=== PATIENT | male | born 1955 | race Caucasian/White ===

== ENCOUNTER → 2017-07-24 | Outpatient (CLI) | payer MEDICARE ==
[2017-07-24 11:40] LABS: ALBUMIN 4.6 g/dL (3.5-5.0); BUN/CREATININE RATIO 14.7 (6.0-26.0); CALCIUM 8.4 mg/dL (8.4-10.2); POTASSIUM 4.2 mmol/L (3.6-5.0); TOTAL BILIRUBIN 0.7 mg/dL (0.2-1.3); TOTAL PROTEIN 8.2 g/dL (6.3-8.2)
[2017-07-24 11:41] LABS: EOS # 0.1 (0.04-0.40); EOS % 1.5 % (0.0-4.0); HEMATOCRIT 49.5 % (42.0-52.0); HEMOGLOBIN 16.4 g/dL (13.5-18.0); LYMPH# 1.7 (1.50-4.00); MEAN CELL VOLUME 89 fl (78-100); MEAN CORPUSCULAR HEMOGLOBIN 29 pg (27-31); MEAN CORPUSCULAR HGB CONC 33 g/dL (33-37); MEAN PLATELET VOLUME 11.6 fl (7.4-10.4); MONO # 0.7 (0.20-0.80); NEU # 4.9 (1.40-6.50); PLATELET COUNT 245 K/mm3 (130-400); RED BLOOD COUNT 5.58 M/mm3 (4.20-5.60); RED CELL DISTRIBUTION WIDTH 13.5 % (11.5-14.5); WHITE BLOOD COUNT 7.5 K/mm3 (4.8-10.8)
== END ==
LOC: LAB 11:08
PROVIDERS: Family Medicine
DX: Z00.00 Encounter for general adult medical examination without abnormal findings (principal); R53.83 Other fatigue

== ENCOUNTER → 2017-08-03 | Outpatient (CLI) | payer MEDICARE | LOC: RAD 10:22 | DX: M54.9 Dorsalgia, unspecified (principal); Z53.8 Procedure and treatment not carried out for other reasons ==

== ENCOUNTER → 2019-10-13 | Outpatient (CLI) | payer MEDICARE ==
[2019-10-13 12:20] LABS: POTASSIUM 3.3 mmol/L (3.5-5.1)
[2019-10-13 12:22] LABS: CALCIUM 9.2 mg/dL (8.3-10.5)
== END ==
LOC: LAB 11:55
PROVIDERS: Family Medicine
DX: M54.9 Dorsalgia, unspecified (principal); Z98.890 Other specified postprocedural states

== ENCOUNTER → 2019-10-19 | Outpatient (CLI) | payer MEDICARE | LOC: AMSURD 15:41 | DX: I45.10 Unspecified right bundle-branch block (principal) ==

== ENCOUNTER → 2019-11-24 | Outpatient (CLI) | payer MEDICARE ==
[2019-11-24 11:35] LABS: POTASSIUM 3.9 mmol/L (3.5-5.1)
[2019-11-24 11:36] LABS: CALCIUM 8.9 mg/dL (8.3-10.5)
== END ==
LOC: LAB 10:48
PROVIDERS: Family Medicine
DX: M54.2 Cervicalgia (principal); Z98.890 Other specified postprocedural states

== ENCOUNTER 2020-01-22 23:30 | Emergency (ER) | payer MEDICARE ==
[~2020-01-22] VITALS: Ht 182.9 cm; Wt 96.8 kg
[2020-01-22] MEDS ORDERED: NORCO 325 MG-7.1 TA1 PO (23:45)
[2020-01-22] MEDS ORDERED: LISINOPRIL AND1 TA1 PO (23:45)
[2020-01-23 00:53] LABS: EOS # 0.2 (0.04-0.40); EOS % 1.6 % (0.0-4.0); HEMATOCRIT 46.2 % (42.0-52.0); HEMOGLOBIN 15.5 g/dL (13.5-18.0); LYMPH# 2.1 (1.50-4.00); MEAN CELL VOLUME 86 fl (78-100); MEAN CORPUSCULAR HEMOGLOBIN 29 pg (27-31); MEAN CORPUSCULAR HGB CONC 34 g/dL (33-37); MEAN PLATELET VOLUME 11.8 fl (7.4-10.4); MONO # 0.9 (0.20-0.80); NEU # 7.2 (1.40-6.50); PLATELET COUNT 254 K/mm3 (130-400); WHITE BLOOD COUNT 10.5 K/mm3 (4.8-10.8)
[2020-01-23 00:58] LABS: POTASSIUM 3.5 mmol/L (3.5-5.1)
[2020-01-23 00:59] LABS: CALCIUM 9.1 mg/dL (8.3-10.5)
[2020-01-23 03:16] VITALS: BP 109/73
== END 2020-01-23 03:19 | disposition home or self-care (01) ==
LOC: ED 23:30
PROVIDERS: Family Medicine
DX: I95.1 Orthostatic hypotension (principal); E86.9 Volume depletion, unspecified; I10 Essential (primary) hypertension; Z87.891 Personal history of nicotine dependence
CPT/HCPCS: J7030

== ENCOUNTER 2020-01-24 13:00 | Outpatient (RCR) | payer MEDICARE ==
[~2020-01-24 13:00] MED LIST: LISINOPRIL AND1 TA1 PO; NORCO 325 MG-7.1 TA1 PO
== END 2020-02-13 ==
LOC: PT
DX: M54.9 Dorsalgia, unspecified (principal)

== ENCOUNTER → 2021-05-24 | Outpatient (CLI) | payer MEDICARE ==
[2021-05-24 13:39] LABS: ALBUMIN 4.1 g/dL (3.4-4.8); POTASSIUM 3.9 mmol/L (3.5-5.1)
[2021-05-24 13:40] LABS: CALCIUM 9.4 mg/dL (8.3-10.5)
[2021-05-24 13:41] LABS: TOTAL PROTEIN 6.9 g/dL (6.2-8.1)
[2021-05-24 13:43] LABS: TOTAL BILIRUBIN 0.6 mg/dL (0.2-1.2)
== END ==
LOC: LAB 13:05
PROVIDERS: Family Medicine
DX: Z00.00 Encounter for general adult medical examination without abnormal findings (principal); E78.5 Hyperlipidemia, unspecified; M54.9 Dorsalgia, unspecified; I10 Essential (primary) hypertension; M54.2 Cervicalgia; E66.3 Overweight; R53.83 Other fatigue

== ENCOUNTER → 2021-06-05 | Outpatient (CLI) | payer MEDICARE ==
[2021-06-05 14:16] LABS: BASO # 0.06 K/mm3 (0.02-0.10); EOS % 1.1 % (0.0-4.0); HEMATOCRIT 49.4 % (42.0-52.0); HEMOGLOBIN 16.2 g/dL (13.5-18.0); LYMPH# 1.56 K/mm3 (1.50-4.00); MEAN CELL VOLUME 89 fl (78-100); MEAN CORPUSCULAR HEMOGLOBIN 29 pg (27-31); MEAN CORPUSCULAR HGB CONC 33 g/dL (33-37); MEAN PLATELET VOLUME 11.1 fl (7.4-10.4); MONO # 0.64 K/mm3 (0.20-0.80); NEU # 6.92 K/mm3 (1.40-6.50); PLATELET COUNT 242 K/mm3 (130-400); RED BLOOD COUNT 5.57 M/mm3 (4.20-5.60); RED CELL DISTRIBUTION WIDTH 12.7 % (11.5-14.5); WHITE BLOOD COUNT 9.3 K/mm3 (4.8-10.8)
== END ==
LOC: LAB 14:02
PROVIDERS: Family Medicine
DX: Z00.00 Encounter for general adult medical examination without abnormal findings (principal); Z12.5 Encounter for screening for malignant neoplasm of prostate

== ENCOUNTER → 2023-06-29 | Outpatient (CLI) | payer MEDICARE ==
[~2023-06-29] MED LIST changes: +ASPERCREME1 EACH TP; +CYCLOBENZAPRINE10 M1 PO
[2023-08-18 14:23] LABS: ALBUMIN 4.6 g/dL (3.4-4.8); CALCIUM 9.9 mg/dL (8.3-10.5); TOTAL BILIRUBIN 0.4 mg/dL (0.2-1.2); TOTAL PROTEIN 7.5 g/dL (6.2-8.1)
[2023-08-18 14:24] LABS: BASO # 0.02 K/mm3 (0.02-0.10); EOS # 0.12 K/mm3 (0.04-0.40); EOS % 1.2 % (0.0-4.0); HEMOGLOBIN 16.5 g/dL (13.5-18.0); LYMPH# 1.76 K/mm3 (1.50-4.00); MEAN CELL VOLUME 87 fl (78-100); MEAN CORPUSCULAR HEMOGLOBIN 29 pg (27-31); MEAN CORPUSCULAR HGB CONC 33 g/dL (33-37); MEAN PLATELET VOLUME 11.2 fl (7.4-10.4); MONO # 0.76 K/mm3 (0.20-0.80); PLATELET COUNT 258 K/mm3 (130-400); RED BLOOD COUNT 5.73 M/mm3 (4.20-5.60); RED CELL DISTRIBUTION WIDTH 12.6 % (11.5-14.5); WHITE BLOOD COUNT 10.2 K/mm3 (4.8-10.8)
== END ==
LOC: LAB 12:30
PROVIDERS: Family Medicine
DX: Z00.00 Encounter for general adult medical examination without abnormal findings (principal); Z11.59 Encounter for screening for other viral diseases; I10 Essential (primary) hypertension; E78.5 Hyperlipidemia, unspecified